=== PATIENT | male | born 1950 | race Caucasian/White ===

== ENCOUNTER → 2018-08-22 | Outpatient (CLI) | payer OTHER, MEDICARE | LOC: EMCIMAGING 12:42 | PROVIDERS: ATTEND Internal Medicine | DX: R42 Dizziness and giddiness (principal); R90.82 White matter disease, unspecified | CPT/HCPCS: 70553-PN ==

== ENCOUNTER → 2018-08-23 | Outpatient (CLI) | payer OTHER, MEDICARE | LOC: BHFA 09:00 | PROVIDERS: ATTEND Internal Medicine Cardiovascular Disease | DX: R42 Dizziness and giddiness (principal) ==